=== PATIENT | female | born 1970 | race Two or more races ===

== ENCOUNTER 2022-08-22 15:00 | Emergency (ER) | payer OTHER ==
[~2022-08-22] VITALS: Ht 152.4 cm; Wt 46.0 kg
[2022-08-22 15:22] VITALS: BP 123/78
[2022-08-22] MEDS ORDERED: SODIUM CHLORIDE 0.9% 1,000 ML IV ONE (15:45)
== END 2022-08-22 17:10 | disposition left against medical advice (07) ==
LOC: ER 15:00
DX: F10.129 Alcohol abuse with intoxication, unspecified (principal); Y90.8 Blood alcohol level of 240 mg/100 ml or more
CPT/HCPCS: 36415; 80320; 99283; J7030; G0480